=== PATIENT | female | born 1940 | race Asian ===

== ENCOUNTER 2019-12-28 11:52 | Inpatient (IN) | payer OTHER ==
[~2019-12-28] VITALS: Ht 149.9 cm; Wt 50.8 kg
[2019-12-28 12:33] LABS: BASOPHILS % (AUTO) 1 % (0-1); EOSINOPHILS % (AUTO) 0 % (1-7); LYMPHOCYTES % (AUTO) 17 % (22-44); MD NO; MEAN CORPUSCULAR HEMOGLOBIN 28.1 pg (27.0-34.8); MEAN CORPUSCULAR HGB CONC 32.8 g/dL (32.4-35.8); MEAN PLATELET VOLUME 10.3 fL (7.4-10.4); MONOCYTES % (AUTO) 13 % (2-9); NEUTROPHILS % (AUTO) 69 % (42-75); PLATELET COUNT 169 x10^3/uL (130-400); RED BLOOD COUNT 5.04 x10^6/uL (3.82-5.3); RED CELL DISTRIBUTION WIDTH 13.9 % (9.6-15.2)
[2019-12-28 12:42] LABS: INTERNATIONAL NORMALIZED RATIO 0.94 (0.93-1.1)
[2019-12-28 12:44] LABS: ALBUMIN 3.8 g/dL (3.4-5.0); ANION GAP 8 mmol/L (5-15); CALCIUM 9.7 mg/dL (8.5-10.1); CHLORIDE 105 mmol/L (98-107)
--- NOTE | 2019-12-28 12:45 | NUR ---
daughter at bedside states she needs to leave to take care of her kids at home. daughter states pt speaks tagalo. unable to get [employer] to work on [employer]
[2019-12-28 12:50] LABS: ALANINE AMINOTRANSFERASE 30 U/L (12-78); ALKALINE PHOSPHATASE 158 U/L (45-117); BILIRUBIN,TOTAL 0.6 mg/dL (0.2-1.0); CREATININE 1.03 mg/dL (0.55-1.02); TOTAL PROTEIN 8.4 g/dL (6.4-8.2)
--- NOTE | 2019-12-28 12:52 | NUR ---
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
--- NOTE | 2019-12-28 13:09 | NUR ---
pt to ct now
--- NOTE | 2019-12-28 13:16 | NUR ---
PT BACK FROM CT
[2019-12-28] MEDS ORDERED: OMNIPAQUE 350 MG/ML, 100ML BOTTLE ONE (13:29)
[2019-12-28] MEDS ORDERED: SODIUM CHLORIDE FLUSH 10ML SYR IVF ONE (13:30)
--- NOTE | 2019-12-28 13:30 | NUR ---
pt urinated the bed x2. new sheets and chucks applied x 2
[2019-12-28] MEDS ORDERED: LABETALOL 5MG/ML, 20ML IVPush ONE (14:00)
--- NOTE | 2019-12-28 16:42 | NUR ---
REPORT RECIEVED FROM VERN DURAN. ASSUMED CARE
[2019-12-28 18:40] VITALS: BP 176/87
[2019-12-28] MEDS ORDERED: POLYETHYLENE GLYCOL 17 GM PACKET PO PRN (19:30)
[2019-12-28] MEDS ORDERED: BISACODYL 10 MG SUPP PR PRN (19:30)
[2019-12-28] MEDS ORDERED: POTASSIUM CHLORIDE 20 MEQ TAB.ER.PRT PO ONE (20:00)
[2019-12-28 20:02] VITALS: BP 148/83
[2019-12-28] MEDS: SODIUM CHLORIDE 0.9% 1,000 ML IV SCH (21:04)
[2019-12-28] MEDS ORDERED: LOSA25TA12 PO (21:10)
[2019-12-28] MEDS ORDERED: ATOR20TA86 PO (21:12)
[2019-12-28] MEDS ORDERED: SITA1TAB PO (21:13)
[2019-12-29 00:58] VITALS: BP 152/86
[2019-12-29] MEDS: ASPIRIN 81 MG TABLET EC PO SCH (06:05)
[2019-12-29 06:28] LABS: BASOPHILS % (AUTO) 1 % (0-1); EOSINOPHILS % (AUTO) 0 % (1-7); LYMPHOCYTES % (AUTO) 28 % (22-44); MEAN CORPUSCULAR HEMOGLOBIN 27.7 pg (27.0-34.8); MEAN CORPUSCULAR HGB CONC 32.3 g/dL (32.4-35.8); MEAN PLATELET VOLUME 9.4 fL (7.4-10.4); MONOCYTES % (AUTO) 12 % (2-9); NEUTROPHILS % (AUTO) 60 % (42-75); PLATELET COUNT 156 x10^3/uL (130-400); RED BLOOD COUNT 5.05 x10^6/uL (3.82-5.3); RED CELL DISTRIBUTION WIDTH 13.8 % (9.6-15.2)
[2019-12-29 06:57] LABS: MD NO
[2019-12-29 07:11] VITALS: BP 165/85
[2019-12-29 10:47] LABS: ANION GAP 10 mmol/L (5-15); CALCIUM 9.1 mg/dL (8.5-10.1); CHLORIDE 110 mmol/L (98-107)
[2019-12-29 10:48] LABS: ALANINE AMINOTRANSFERASE 24 U/L (12-78); ALKALINE PHOSPHATASE 141 U/L (45-117); BILIRUBIN,TOTAL 0.5 mg/dL (0.2-1.0); CREATININE 0.94 mg/dL (0.55-1.02); TOTAL PROTEIN 7.8 g/dL (6.4-8.2)
[2019-12-29 10:49] LABS: ALBUMIN 3.3 g/dL (3.4-5.0); CHOL/HDL RATIO 1.9; CHOLESTEROL, TOTAL 142 mg/dL (140-239); HDL CHOL % 51 % (28-40); HDL CHOLESTEROL (DIRECT) 73 mg/dL (40-60); LDL CHOLESTEROL,CALCULATED 50 mg/dL (54-169); LDL/HDL RATIO 0.7 (0.5-3.0); TRIGLYCERIDES 96 mg/dL (50-200); VLDL CHOLESTEROL 19 mg/dL (0-25)
[2019-12-29] MEDS: SODIUM CHLORIDE 0.9% 1,000 ML IV SCH (11:30)
[2019-12-29 12:02] VITALS: BP 162/83
[2019-12-29] MEDS: ATORVASTATIN 40 MG TABLET PO SCH (21:25)
[2019-12-29 21:26] VITALS: BP 186/82
[2019-12-30 01:25] VITALS: BP 157/94
[2019-12-30] MEDS: SODIUM CHLORIDE 0.9% 1,000 ML IV SCH (03:02)
[2019-12-30] MEDS: ASPIRIN 81 MG TABLET EC PO SCH (06:29)
[2019-12-30 06:34] VITALS: BP 127/99
[2019-12-30 13:19] VITALS: BP 154/88
[2019-12-30] MEDS: ENOXAPARIN 40 MG/0.4 ML SQ SCH (13:44)
[2019-12-30 19:49] VITALS: BP 160/76
[2019-12-30] MEDS: ATORVASTATIN 40 MG TABLET PO SCH (21:49)
[2019-12-30] MEDS: ACETAMINOPHEN 325 MG TABLET PO PRN (22:52)
[2019-12-31 01:46] VITALS: BP 113/66
[2019-12-31] MEDS: ASPIRIN 81 MG TABLET EC PO SCH (05:38)
[2019-12-31 06:52] VITALS: BP 138/76
[2019-12-31] MEDS: POLYETHYLENE GLYCOL 17 GM PACKET PO SCH (12:26)
--- NOTE | 2019-12-31 12:46 | NUR ---
Posted activity sheet recommending patient be up for meals and transfer with two person assist using a nghia walker (in room) Addendum: 12/31/19 at 1252 by Taye Hilliard PT Amended: Links added.
[2019-12-31] MEDS: ENOXAPARIN 40 MG/0.4 ML SQ SCH (12:48)
[2019-12-31 13:55] VITALS: BP 128/62
[2019-12-31] MEDS: INSULIN LISPRO 100 UNITS/ML, PEN SQ-INSULIN SCH ×2 (16:53→20:18)
[2019-12-31 20:13] VITALS: BP 132/86
[2019-12-31] MEDS: ATORVASTATIN 40 MG TABLET PO SCH (20:18)
[2019-12-31] MEDS: ACETAMINOPHEN 325 MG TABLET PO PRN (20:18)
[2020-01-01 00:59] VITALS: BP 125/66
[2020-01-01] MEDS: ASPIRIN 81 MG TABLET EC PO SCH (05:09)
[2020-01-01] MEDS: INSULIN LISPRO 100 UNITS/ML, PEN SQ-INSULIN SCH ×4 (07:00→20:35)
[2020-01-01 07:47] VITALS: BP 161/80
[2020-01-01] MEDS: POLYETHYLENE GLYCOL 17 GM PACKET PO SCH (08:33)
[2020-01-01 12:18] VITALS: BP 139/82
[2020-01-01] MEDS: ENOXAPARIN 40 MG/0.4 ML SQ SCH (13:59)
[2020-01-01 20:18] VITALS: BP 152/89
[2020-01-01] MEDS: ACETAMINOPHEN 325 MG TABLET PO PRN (20:35)
[2020-01-01] MEDS: ATORVASTATIN 40 MG TABLET PO SCH (20:35)
[2020-01-02 01:32] VITALS: BP 105/66
[2020-01-02] MEDS: ASPIRIN 81 MG TABLET EC PO SCH (05:55)
[2020-01-02] MEDS: INSULIN LISPRO 100 UNITS/ML, PEN SQ-INSULIN SCH ×4 (07:49→21:08)
[2020-01-02 08:48] VITALS: BP 158/80
[2020-01-02 09:18] LABS: BASOPHILS % (AUTO) 1 % (0-1); EOSINOPHILS % (AUTO) 0 % (1-7); LYMPHOCYTES % (AUTO) 36 % (22-44); MD NO; MEAN CORPUSCULAR HEMOGLOBIN 28.5 pg (27.0-34.8); MEAN CORPUSCULAR HGB CONC 32.8 g/dL (32.4-35.8); MEAN PLATELET VOLUME 9.8 fL (7.4-10.4); MONOCYTES % (AUTO) 13 % (2-9); NEUTROPHILS % (AUTO) 51 % (42-75); PLATELET COUNT 141 x10^3/uL (130-400); RED BLOOD COUNT 5.45 x10^6/uL (3.82-5.3); RED CELL DISTRIBUTION WIDTH 13.8 % (9.6-15.2)
[2020-01-02 09:27] LABS: ALBUMIN 3.4 g/dL (3.4-5.0); ANION GAP 10 mmol/L (5-15); CALCIUM 9.2 mg/dL (8.5-10.1); CHLORIDE 102 mmol/L (98-107)
[2020-01-02 09:31] LABS: ALANINE AMINOTRANSFERASE 41 U/L (12-78); ALKALINE PHOSPHATASE 213 U/L (45-117); BILIRUBIN,TOTAL 0.7 mg/dL (0.2-1.0); CREATININE 1.06 mg/dL (0.55-1.02); TOTAL PROTEIN 8.9 g/dL (6.4-8.2)
[2020-01-02] MEDS: POLYETHYLENE GLYCOL 17 GM PACKET PO SCH (11:52)
[2020-01-02] MEDS: AMPICILLIN/SULBACTAM 3 GM in SODIUM CHLORIDE 0.9% 100 ML IV SCH ×2 (11:53→18:23)
[2020-01-02 12:28] VITALS: BP 142/93
[2020-01-02] MEDS: ENOXAPARIN 40 MG/0.4 ML SQ SCH (12:53)
[2020-01-02 19:15] VITALS: BP 137/88
[2020-01-02] MEDS: ATORVASTATIN 40 MG TABLET PO SCH (21:07)
[2020-01-03] MEDS: AMPICILLIN/SULBACTAM 3 GM in SODIUM CHLORIDE 0.9% 100 ML IV SCH ×5 (00:11→23:42)
[2020-01-03 02:00] VITALS: BP 132/84
[2020-01-03] MEDS: ASPIRIN 81 MG TABLET EC PO SCH (05:55)
[2020-01-03 06:32] VITALS: BP 151/81
[2020-01-03 07:57] LABS: BASOPHILS % (AUTO) 0 % (0-1); EOSINOPHILS % (AUTO) 0 % (1-7); LYMPHOCYTES % (AUTO) 22 % (22-44); MEAN CORPUSCULAR HEMOGLOBIN 28.3 pg (27.0-34.8); MEAN CORPUSCULAR HGB CONC 32.8 g/dL (32.4-35.8); MONOCYTES % (AUTO) 14 % (2-9); NEUTROPHILS % (AUTO) 63 % (42-75); PLATELET COUNT 137 x10^3/uL (130-400); RED BLOOD COUNT 5.02 x10^6/uL (3.82-5.3); RED CELL DISTRIBUTION WIDTH 13.3 % (9.6-15.2)
[2020-01-03 08:06] LABS: MD NO
[2020-01-03 08:07] LABS: ALANINE AMINOTRANSFERASE 31 U/L (12-78); ALBUMIN 2.7 g/dL (3.4-5.0); ANION GAP 9 mmol/L (5-15); CALCIUM 8.4 mg/dL (8.5-10.1); CHLORIDE 103 mmol/L (98-107); CREATININE 0.88 mg/dL (0.55-1.02)
[2020-01-03 08:09] LABS: ALKALINE PHOSPHATASE 185 U/L (45-117); BILIRUBIN,TOTAL 0.6 mg/dL (0.2-1.0); TOTAL PROTEIN 7.3 g/dL (6.4-8.2)
[2020-01-03] MEDS: INSULIN LISPRO 100 UNITS/ML, PEN SQ-INSULIN SCH ×4 (08:24→20:05)
[2020-01-03] MEDS: POLYETHYLENE GLYCOL 17 GM PACKET PO SCH (09:03)
[2020-01-03] MEDS: ENOXAPARIN 40 MG/0.4 ML SQ SCH (11:37)
[2020-01-03 12:03] VITALS: BP 120/76
[2020-01-03 19:19] VITALS: BP 173/84
[2020-01-03 21:19] VITALS: BP 173/91
[2020-01-03] MEDS: ATORVASTATIN 40 MG TABLET PO SCH (21:21)
[2020-01-03] MEDS: hydrALAzine 20 MG/ML, 1ML IV PRN (21:22)
[2020-01-03 23:01] VITALS: BP 156/75
[2020-01-04 00:48] VITALS: BP 153/80
[2020-01-04] MEDS: AMPICILLIN/SULBACTAM 3 GM in SODIUM CHLORIDE 0.9% 100 ML IV SCH ×3 (06:26→16:58)
[2020-01-04] MEDS: ASPIRIN 81 MG TABLET EC PO SCH (06:26)
[2020-01-04 06:56] VITALS: BP 145/74
[2020-01-04 08:08] LABS: MICROSCOPIC INDICATED
[2020-01-04] MEDS: INSULIN LISPRO 100 UNITS/ML, PEN SQ-INSULIN SCH ×4 (08:15→21:04)
[2020-01-04] MEDS ORDERED: LISINOPRIL 5 MG TABLET PO SCH (09:00)
[2020-01-04] MEDS: POLYETHYLENE GLYCOL 17 GM PACKET PO SCH (09:21)
[2020-01-04 12:23] VITALS: BP 130/75
[2020-01-04] MEDS: ENOXAPARIN 40 MG/0.4 ML SQ SCH (13:15)
[2020-01-04 19:09] VITALS: BP 137/73
[2020-01-04] MEDS: ATORVASTATIN 40 MG TABLET PO SCH (21:04)
[2020-01-05] MEDS: AMPICILLIN/SULBACTAM 3 GM in SODIUM CHLORIDE 0.9% 100 ML IV SCH ×4 (00:01→17:15)
[2020-01-05 02:27] VITALS: BP 163/70
[2020-01-05] MEDS: ASPIRIN 81 MG TABLET EC PO SCH (05:48)
[2020-01-05] MEDS: INSULIN LISPRO 100 UNITS/ML, PEN SQ-INSULIN SCH ×4 (07:00→21:15)
[2020-01-05 07:14] VITALS: BP 179/80
[2020-01-05] MEDS: LISINOPRIL 10 MG TABLET PO SCH (07:48)
[2020-01-05] MEDS: POLYETHYLENE GLYCOL 17 GM PACKET PO SCH (07:48)
[2020-01-05] MEDS: ENOXAPARIN 40 MG/0.4 ML SQ SCH (12:31)
[2020-01-05 12:53] VITALS: BP 152/79
[2020-01-05 19:50] VITALS: BP 163/89
[2020-01-05 19:56] VITALS: BP 157/94
[2020-01-05] MEDS: ATORVASTATIN 40 MG TABLET PO SCH (21:14)
[2020-01-06] MEDS: AMPICILLIN/SULBACTAM 3 GM in SODIUM CHLORIDE 0.9% 100 ML IV SCH ×4 (00:58→18:32)
[2020-01-06 01:07] VITALS: BP 117/70
[2020-01-06 06:16] VITALS: BP 147/74
[2020-01-06] MEDS: INSULIN LISPRO 100 UNITS/ML, PEN SQ-INSULIN SCH ×4 (07:35→20:27)
[2020-01-06] MEDS: ASPIRIN 81 MG TABLET EC PO SCH (09:16)
[2020-01-06] MEDS: LISINOPRIL 10 MG TABLET PO SCH (09:17)
[2020-01-06] MEDS: POLYETHYLENE GLYCOL 17 GM PACKET PO SCH (09:17)
[2020-01-06 12:05] VITALS: BP 148/80
[2020-01-06] MEDS: ENOXAPARIN 40 MG/0.4 ML SQ SCH (12:43)
[2020-01-06 19:40] VITALS: BP 163/96
[2020-01-06] MEDS: ATORVASTATIN 40 MG TABLET PO SCH (20:28)
[2020-01-07] MEDS: AMPICILLIN/SULBACTAM 3 GM in SODIUM CHLORIDE 0.9% 100 ML IV SCH ×4 (01:49→21:08)
[2020-01-07 02:31] VITALS: BP 122/76
[2020-01-07] MEDS: ASPIRIN 81 MG TABLET EC PO SCH (05:56)
[2020-01-07 06:55] VITALS: BP 147/91
[2020-01-07] MEDS: INSULIN LISPRO 100 UNITS/ML, PEN SQ-INSULIN SCH ×4 (07:00→20:33)
[2020-01-07] MEDS: POLYETHYLENE GLYCOL 17 GM PACKET PO SCH (09:58)
[2020-01-07] MEDS: ENOXAPARIN 40 MG/0.4 ML SQ SCH (11:26)
[2020-01-07 15:18] VITALS: BP 149/84
[2020-01-07 18:38] VITALS: BP 147/80
[2020-01-07] MEDS: ATORVASTATIN 40 MG TABLET PO SCH (20:37)
[2020-01-08 00:40] VITALS: BP 156/78
[2020-01-08 02:00] LABS: BASOPHILS % (AUTO) 0 % (0-1); EOSINOPHILS % (AUTO) 0 % (1-7); LYMPHOCYTES % (AUTO) 18 % (22-44); MEAN CORPUSCULAR HEMOGLOBIN 27.8 pg (27.0-34.8); MEAN CORPUSCULAR HGB CONC 32.4 g/dL (32.4-35.8); MEAN PLATELET VOLUME 9.3 fL (7.4-10.4); MONOCYTES % (AUTO) 13 % (2-9); NEUTROPHILS % (AUTO) 68 % (42-75); PLATELET COUNT 249 x10^3/uL (130-400); RED BLOOD COUNT 4.58 x10^6/uL (3.82-5.3); RED CELL DISTRIBUTION WIDTH 13.8 % (9.6-15.2)
[2020-01-08 02:03] LABS: MD NO
[2020-01-08 02:21] LABS: D-DIMER (DIC) 0.86 ug/mlFEU (0.00-0.52)
[2020-01-08 02:42] LABS: ANION GAP 6 mmol/L (5-15); CALCIUM 8.6 mg/dL (8.5-10.1); CHLORIDE 103 mmol/L (98-107); CREATININE 0.76 mg/dL (0.55-1.02)
[2020-01-08] MEDS ORDERED: POTASSIUM CHLORIDE 40 MEQ in SODIUM CHLORIDE 0.9% 500 ML IV ONE (03:00)
[2020-01-08] MEDS: AMPICILLIN/SULBACTAM 3 GM in SODIUM CHLORIDE 0.9% 100 ML IV SCH ×3 (04:21→16:21)
[2020-01-08] MEDS: ASPIRIN 81 MG TABLET EC PO SCH (05:08)
[2020-01-08 06:52] VITALS: BP 149/88
[2020-01-08] MEDS: INSULIN LISPRO 100 UNITS/ML, PEN SQ-INSULIN SCH ×5 (07:00→21:00)
[2020-01-08] MEDS ORDERED: POTASSIUM CHLORIDE 10% 20 MEQ/15 ML UDC PO SCH (08:00)
[2020-01-08] MEDS: LISINOPRIL 20 MG TABLET PO SCH (09:26)
[2020-01-08] MEDS: POTASSIUM CHLORIDE 20 MEQ TAB.ER.PRT PO SCH ×2 (09:26→13:28)
[2020-01-08] MEDS: POLYETHYLENE GLYCOL 17 GM PACKET PO SCH (09:26)
[2020-01-08 12:05] VITALS: BP 173/89
[2020-01-08] MEDS: hydrALAzine 20 MG/ML, 1ML IV PRN (12:16)
[2020-01-08 16:42] VITALS: BP 156/84
[2020-01-08] MEDS: ENOXAPARIN 40 MG/0.4 ML SQ SCH (17:35)
[2020-01-08 20:00] VITALS: BP 165/92
[2020-01-08] MEDS: LACTOBACILLUS CHEW TABLET PO SCH (21:00)
[2020-01-08] MEDS: ATORVASTATIN 40 MG TABLET PO SCH (21:38)
[2020-01-08] MEDS ORDERED: AMPICILLIN/SULBACTAM 3 GM in SODIUM CHLORIDE 0.9% 100 ML IV SCH (22:00)
[2020-01-09 01:38] VITALS: BP 166/85
[2020-01-09 04:39] LABS: BASOPHILS % (AUTO) 1 % (0-1); EOSINOPHILS % (AUTO) 1 % (1-7); LYMPHOCYTES % (AUTO) 19 % (22-44); MEAN CORPUSCULAR HEMOGLOBIN 28.4 pg (27.0-34.8); MEAN CORPUSCULAR HGB CONC 32.8 g/dL (32.4-35.8); MEAN PLATELET VOLUME 8.9 fL (7.4-10.4); MONOCYTES % (AUTO) 13 % (2-9); NEUTROPHILS % (AUTO) 67 % (42-75); PLATELET COUNT 281 x10^3/uL (130-400); RED BLOOD COUNT 4.25 x10^6/uL (3.82-5.3); RED CELL DISTRIBUTION WIDTH 13.6 % (9.6-15.2)
[2020-01-09 04:47] LABS: ANION GAP 6 mmol/L (5-15); CALCIUM 8.8 mg/dL (8.5-10.1); CHLORIDE 108 mmol/L (98-107); CREATININE 0.67 mg/dL (0.55-1.02)
[2020-01-09] MEDS: ASPIRIN 81 MG TABLET EC PO SCH (05:10)
[2020-01-09 05:58] LABS: MD SCAN
[2020-01-09] MEDS: INSULIN LISPRO 100 UNITS/ML, PEN SQ-INSULIN SCH ×4 (07:00→19:51)
[2020-01-09 08:00] VITALS: BP 180/94
[2020-01-09] MEDS: POLYETHYLENE GLYCOL 17 GM PACKET PO SCH (10:32)
[2020-01-09] MEDS: LISINOPRIL 20 MG TABLET PO SCH (10:33)
[2020-01-09] MEDS: AMLODIPINE 5 MG TABLET PO SCH (10:33)
[2020-01-09] MEDS: LACTOBACILLUS CHEW TABLET PO SCH ×3 (10:34→21:25)
--- NOTE | 2020-01-09 12:06 | NUR ---
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 Addendum: 01/09/20 at 1207 by Belen CONRAD Amended: Links added.
[2020-01-09 14:00] VITALS: BP 167/90
[2020-01-09] MEDS: ENOXAPARIN 40 MG/0.4 ML SQ SCH (17:42)
[2020-01-09 19:20] VITALS: BP 158/79
[2020-01-09] MEDS: ATORVASTATIN 40 MG TABLET PO SCH (21:24)
[2020-01-09] MEDS: MELATONIN 5 MG TABLET PO PRN (21:24)
[2020-01-10 01:39] VITALS: BP 151/73
[2020-01-10] MEDS: ASPIRIN 81 MG TABLET EC PO SCH (05:57)
[2020-01-10 06:51] VITALS: BP 114/77
[2020-01-10] MEDS: INSULIN LISPRO 100 UNITS/ML, PEN SQ-INSULIN SCH ×4 (08:26→20:30)
[2020-01-10] MEDS: LISINOPRIL 20 MG TABLET PO SCH (08:27)
[2020-01-10] MEDS: POLYETHYLENE GLYCOL 17 GM PACKET PO SCH (08:27)
[2020-01-10] MEDS: LACTOBACILLUS CHEW TABLET PO SCH ×3 (08:27→20:20)
[2020-01-10] MEDS: AMLODIPINE 5 MG TABLET PO SCH (08:28)
[2020-01-10 12:06] VITALS: BP 122/77
[2020-01-10] MEDS: ENOXAPARIN 40 MG/0.4 ML SQ SCH (15:59)
[2020-01-10 16:02] VITALS: BP 131/81
[2020-01-10] MEDS ORDERED: OMNIPAQUE 350 MG/ML, 75ML BOTTLE ONE (18:04)
[2020-01-10 19:00] VITALS: BP 127/82
[2020-01-10] MEDS: ATORVASTATIN 40 MG TABLET PO SCH (20:20)
[2020-01-10] MEDS: MELATONIN 5 MG TABLET PO PRN (20:51)
[2020-01-11 02:00] VITALS: BP 119/74
[2020-01-11] MEDS: ASPIRIN 81 MG TABLET EC PO SCH (05:41)
[2020-01-11] MEDS: INSULIN LISPRO 100 UNITS/ML, PEN SQ-INSULIN SCH ×4 (07:00→21:00)
[2020-01-11 07:27] VITALS: BP 121/75
[2020-01-11] MEDS: POLYETHYLENE GLYCOL 17 GM PACKET PO SCH (08:57)
[2020-01-11] MEDS: AMLODIPINE 5 MG TABLET PO SCH (08:59)
[2020-01-11] MEDS: LISINOPRIL 20 MG TABLET PO SCH (09:00)
[2020-01-11] MEDS: LACTOBACILLUS CHEW TABLET PO SCH ×2 (09:00→16:22)
[2020-01-11 16:08] VITALS: BP 128/78
[2020-01-11] MEDS: ENOXAPARIN 40 MG/0.4 ML SQ SCH (16:21)
[2020-01-11] MEDS: PIPERACILLIN/TAZO/PMX 4.5GM 100 ML IV SCH ×2 (16:54→22:53)
[2020-01-11 18:54] VITALS: BP 132/75
[2020-01-11] MEDS: MELATONIN 5 MG TABLET PO PRN (21:15)
[2020-01-11] MEDS: ATORVASTATIN 40 MG TABLET PO SCH (21:15)
[2020-01-12 01:14] VITALS: BP 112/69
[2020-01-12] MEDS: PIPERACILLIN/TAZO/PMX 4.5GM 100 ML IV SCH ×2 (04:50→11:24)
[2020-01-12] MEDS: ASPIRIN 81 MG TABLET EC PO SCH (06:10)
[2020-01-12] MEDS: INSULIN LISPRO 100 UNITS/ML, PEN SQ-INSULIN SCH ×4 (07:00→21:45)
[2020-01-12 07:48] LABS: BASOPHILS % (AUTO) 0 % (0-1); EOSINOPHILS % (AUTO) 2 % (1-7); LYMPHOCYTES % (AUTO) 18 % (22-44); MEAN CORPUSCULAR HEMOGLOBIN 28.4 pg (27.0-34.8); MEAN CORPUSCULAR HGB CONC 32.8 g/dL (32.4-35.8); MEAN PLATELET VOLUME 9.1 fL (7.4-10.4); MONOCYTES % (AUTO) 16 % (2-9); NEUTROPHILS % (AUTO) 65 % (42-75); PLATELET COUNT 354 x10^3/uL (130-400); RED CELL DISTRIBUTION WIDTH 13.4 % (9.6-15.2)
[2020-01-12 07:57] LABS: CHLORIDE 105 mmol/L (98-107)
[2020-01-12 08:10] LABS: ALANINE AMINOTRANSFERASE 29 U/L (12-78); ALBUMIN 2.2 g/dL (3.4-5.0); ALKALINE PHOSPHATASE 149 U/L (45-117); ANION GAP 10 mmol/L (5-15); BILIRUBIN,TOTAL 1.1 mg/dL (0.2-1.0); CREATININE 0.89 mg/dL (0.55-1.02); TOTAL PROTEIN 6.9 g/dL (6.4-8.2)
[2020-01-12 08:13] LABS: MD NO
[2020-01-12] MEDS: LISINOPRIL 20 MG TABLET PO SCH (09:34)
[2020-01-12] MEDS: AMLODIPINE 5 MG TABLET PO SCH (09:34)
[2020-01-12] MEDS: POLYETHYLENE GLYCOL 17 GM PACKET PO SCH (09:34)
[2020-01-12] MEDS ORDERED: POTASSIUM CHLORIDE 20 MEQ TAB.ER.PRT PO ONE (11:00)
[2020-01-12 11:21] VITALS: BP 148/81
[2020-01-12] MEDS: ENOXAPARIN 40 MG/0.4 ML SQ SCH (17:28)
[2020-01-12 18:50] VITALS: BP 158/82
[2020-01-12] MEDS: PIPERACILLIN/TAZO/PMX 3.375GM 50 ML IV SCH ×2 (19:46→21:46)
[2020-01-12] MEDS: ATORVASTATIN 40 MG TABLET PO SCH (21:45)
[2020-01-13 01:03] VITALS: BP 118/62
[2020-01-13] MEDS: PIPERACILLIN/TAZO/PMX 3.375GM 50 ML IV SCH ×4 (05:00→23:46)
[2020-01-13] MEDS: ASPIRIN 81 MG TABLET EC PO SCH (05:00)
[2020-01-13 06:36] VITALS: BP 166/80
[2020-01-13] MEDS: INSULIN LISPRO 100 UNITS/ML, PEN SQ-INSULIN SCH ×4 (07:00→21:35)
[2020-01-13] MEDS: POLYETHYLENE GLYCOL 17 GM PACKET PO SCH (07:52)
[2020-01-13] MEDS: CHOLECALCIFEROL 5,000u TAB PO SCH (09:47)
[2020-01-13] MEDS: LISINOPRIL 20 MG TABLET PO SCH (09:47)
[2020-01-13] MEDS: ZINC SULFATE 220 MG CAPSULE PO SCH (09:47)
[2020-01-13] MEDS: ASCORBIC ACID 500 MG TABLET PO SCH ×2 (09:47→21:36)
[2020-01-13] MEDS: AMLODIPINE 5 MG TABLET PO SCH (09:47)
[2020-01-13 13:23] VITALS: BP 127/72
[2020-01-13] MEDS: ENOXAPARIN 40 MG/0.4 ML SQ SCH (18:20)
[2020-01-13 19:08] VITALS: BP 152/76
[2020-01-13] MEDS: ATORVASTATIN 40 MG TABLET PO SCH (21:35)
[2020-01-13] MEDS: MELATONIN 5 MG TABLET PO SCH (21:35)
[2020-01-14 00:16] VITALS: BP 132/82
[2020-01-14] MEDS: PIPERACILLIN/TAZO/PMX 3.375GM 50 ML IV SCH ×4 (05:10→23:38)
[2020-01-14] MEDS: ASPIRIN 81 MG TABLET EC PO SCH (05:10)
[2020-01-14 06:53] VITALS: BP 173/82
[2020-01-14] MEDS: INSULIN LISPRO 100 UNITS/ML, PEN SQ-INSULIN SCH ×4 (07:00→20:53)
[2020-01-14] MEDS: AMLODIPINE 10 MG TAB PO SCH (08:19)
[2020-01-14] MEDS: LISINOPRIL 20 MG TABLET PO SCH (08:19)
[2020-01-14] MEDS: ASCORBIC ACID 500 MG TABLET PO SCH ×2 (08:19→20:56)
[2020-01-14] MEDS: POLYETHYLENE GLYCOL 17 GM PACKET PO SCH (08:19)
[2020-01-14] MEDS: CHOLECALCIFEROL 5,000u TAB PO SCH (08:20)
[2020-01-14] MEDS: ZINC SULFATE 220 MG CAPSULE PO SCH (08:20)
[2020-01-14 12:46] VITALS: BP 138/80
[2020-01-14] MEDS: ENOXAPARIN 40 MG/0.4 ML SQ SCH (17:00)
[2020-01-14 18:55] VITALS: BP 153/73
[2020-01-14] MEDS ORDERED: ASCORBIC ACID 250 MG TAB ONE (20:52)
[2020-01-14] MEDS: ATORVASTATIN 40 MG TABLET PO SCH (20:56)
[2020-01-14] MEDS: MELATONIN 5 MG TABLET PO SCH (20:56)
[2020-01-15 01:19] VITALS: BP 121/72
[2020-01-15] MEDS: ASPIRIN 81 MG TABLET EC PO SCH (05:06)
[2020-01-15] MEDS: PIPERACILLIN/TAZO/PMX 3.375GM 50 ML IV SCH ×4 (05:06→22:08)
[2020-01-15 07:08] LABS: ANION GAP 10 mmol/L (5-15); CALCIUM 9.2 mg/dL (8.5-10.1); CHLORIDE 101 mmol/L (98-107)
[2020-01-15 08:06] VITALS: BP 153/83
[2020-01-15] MEDS: INSULIN LISPRO 100 UNITS/ML, PEN SQ-INSULIN SCH ×4 (08:57→21:00)
[2020-01-15] MEDS: ZINC SULFATE 220 MG CAPSULE PO SCH (08:58)
[2020-01-15] MEDS: AMLODIPINE 10 MG TAB PO SCH (08:58)
[2020-01-15] MEDS: ASCORBIC ACID 500 MG TABLET PO SCH ×2 (08:58→22:08)
[2020-01-15] MEDS: POLYETHYLENE GLYCOL 17 GM PACKET PO SCH (08:58)
[2020-01-15] MEDS: CHOLECALCIFEROL 5,000u TAB PO SCH (08:58)
[2020-01-15] MEDS: LISINOPRIL 20 MG TABLET PO SCH (08:58)
[2020-01-15 12:28] VITALS: BP 123/77
[2020-01-15] MEDS ORDERED: POTASSIUM CHLORIDE 20 MEQ TAB.ER.PRT PO ONE (17:00)
[2020-01-15] MEDS: ENOXAPARIN 40 MG/0.4 ML SQ SCH (18:16)
[2020-01-15 21:05] VITALS: BP 146/73
[2020-01-15] MEDS: MELATONIN 5 MG TABLET PO SCH (22:08)
[2020-01-15] MEDS: ATORVASTATIN 40 MG TABLET PO SCH (22:08)
[2020-01-16 00:59] VITALS: BP 138/76
[2020-01-16] MEDS: PIPERACILLIN/TAZO/PMX 3.375GM 50 ML IV SCH ×3 (06:09→19:05)
[2020-01-16] MEDS: ASPIRIN 81 MG TABLET EC PO SCH (06:10)
[2020-01-16 06:38] VITALS: BP 147/75
[2020-01-16] MEDS: INSULIN LISPRO 100 UNITS/ML, PEN SQ-INSULIN SCH ×4 (07:16→20:47)
[2020-01-16] MEDS: POLYETHYLENE GLYCOL 17 GM PACKET PO SCH (07:47)
[2020-01-16] MEDS: LISINOPRIL 20 MG TABLET PO SCH (10:01)
[2020-01-16] MEDS: CHOLECALCIFEROL 5,000u TAB PO SCH (10:01)
[2020-01-16] MEDS: ZINC SULFATE 220 MG CAPSULE PO SCH (10:01)
[2020-01-16] MEDS: ASCORBIC ACID 500 MG TABLET PO SCH ×2 (10:01→20:47)
[2020-01-16] MEDS: AMLODIPINE 10 MG TAB PO SCH (10:01)
[2020-01-16 11:17] VITALS: BP_SYST 122; BP_SYST 157; BP_DIAS 77; BP_DIAS 80
[2020-01-16 12:24] VITALS: BP 157/80
[2020-01-16] MEDS: ENOXAPARIN 40 MG/0.4 ML SQ SCH (17:16)
[2020-01-16] MEDS: ATORVASTATIN 40 MG TABLET PO SCH (20:47)
[2020-01-16] MEDS: MELATONIN 5 MG TABLET PO SCH (20:47)
[2020-01-16 20:50] VITALS: BP 144/78
[2020-01-17] MEDS: PIPERACILLIN/TAZO/PMX 3.375GM 50 ML IV SCH ×4 (00:51→18:42)
[2020-01-17 02:02] VITALS: BP 134/67
[2020-01-17] MEDS: ASPIRIN 81 MG TABLET EC PO SCH (05:56)
[2020-01-17 06:37] VITALS: BP 131/74
[2020-01-17] MEDS: INSULIN LISPRO 100 UNITS/ML, PEN SQ-INSULIN SCH ×4 (09:04→20:03)
[2020-01-17] MEDS: POLYETHYLENE GLYCOL 17 GM PACKET PO SCH (09:04)
[2020-01-17] MEDS: LISINOPRIL 20 MG TABLET PO SCH (09:05)
[2020-01-17] MEDS: ZINC SULFATE 220 MG CAPSULE PO SCH (09:05)
[2020-01-17] MEDS: ASCORBIC ACID 500 MG TABLET PO SCH ×2 (09:05→20:04)
[2020-01-17] MEDS: AMLODIPINE 10 MG TAB PO SCH (09:05)
[2020-01-17] MEDS: CHOLECALCIFEROL 5,000u TAB PO SCH (09:05)
[2020-01-17 12:00] VITALS: BP 156/77
[2020-01-17] MEDS: ENOXAPARIN 40 MG/0.4 ML SQ SCH (15:32)
[2020-01-17 18:33] VITALS: BP 132/62
[2020-01-17] MEDS: ATORVASTATIN 40 MG TABLET PO SCH (20:04)
[2020-01-17] MEDS: MELATONIN 5 MG TABLET PO SCH (20:05)
[2020-01-17] MEDS: ACETAMINOPHEN 325 MG TABLET PO PRN (20:08)
[2020-01-18 01:12] VITALS: BP 149/73
[2020-01-18] MEDS: ASPIRIN 81 MG TABLET EC PO SCH (05:43)
[2020-01-18] MEDS: INSULIN LISPRO 100 UNITS/ML, PEN SQ-INSULIN SCH ×4 (07:00→20:33)
[2020-01-18 07:55] VITALS: BP 125/70
[2020-01-18 08:15] VITALS: BP 128/74
[2020-01-18] MEDS: POLYETHYLENE GLYCOL 17 GM PACKET PO SCH (08:20)
[2020-01-18] MEDS: AMLODIPINE 10 MG TAB PO SCH (08:20)
[2020-01-18] MEDS: ZINC SULFATE 220 MG CAPSULE PO SCH (08:20)
[2020-01-18] MEDS: CHOLECALCIFEROL 5,000u TAB PO SCH (08:20)
[2020-01-18] MEDS: ASCORBIC ACID 500 MG TABLET PO SCH ×2 (08:20→20:33)
[2020-01-18] MEDS: LISINOPRIL 20 MG TABLET PO SCH (08:20)
[2020-01-18 12:29] VITALS: BP 126/72
[2020-01-18] MEDS: ENOXAPARIN 40 MG/0.4 ML SQ SCH (16:02)
[2020-01-18 18:30] VITALS: BP 104/64
[2020-01-18] MEDS: MELATONIN 5 MG TABLET PO SCH (20:33)
[2020-01-18] MEDS: DOCUSATE 100 MG CAPSULE PO PRN (20:33)
[2020-01-18] MEDS: ATORVASTATIN 40 MG TABLET PO SCH (20:33)
[2020-01-19 00:40] VITALS: BP 126/72
[2020-01-19] MEDS: ASPIRIN 81 MG TABLET EC PO SCH (05:06)
[2020-01-19 05:24] LABS: INTERNATIONAL NORMALIZED RATIO 1.02 (0.93-1.1); PROTHROMBIN TIME 10.8 Seconds (9.6-11.5)
[2020-01-19] MEDS: INSULIN LISPRO 100 UNITS/ML, PEN SQ-INSULIN SCH ×4 (07:00→21:00)
[2020-01-19] MEDS: POLYETHYLENE GLYCOL 17 GM PACKET PO SCH ×2 (08:11→09:00)
[2020-01-19] MEDS: AMLODIPINE 10 MG TAB PO SCH ×2 (08:11→09:00)
[2020-01-19] MEDS: ZINC SULFATE 220 MG CAPSULE PO SCH ×2 (08:11→09:00)
[2020-01-19] MEDS: CHOLECALCIFEROL 5,000u TAB PO SCH (08:11)
[2020-01-19] MEDS: LISINOPRIL 20 MG TABLET PO SCH ×2 (08:11→09:00)
[2020-01-19] MEDS: ASCORBIC ACID 500 MG TABLET PO SCH ×3 (08:11→21:13)
[2020-01-19 08:12] VITALS: BP 132/75
[2020-01-19 15:02] VITALS: BP 111/61
[2020-01-19] MEDS: ENOXAPARIN 40 MG/0.4 ML SQ SCH (16:31)
[2020-01-19 19:42] VITALS: BP 153/78
[2020-01-19] MEDS: ATORVASTATIN 40 MG TABLET PO SCH (21:12)
[2020-01-19] MEDS: MELATONIN 5 MG TABLET PO SCH (21:12)
[2020-01-20 00:21] VITALS: BP 149/76
[2020-01-20] MEDS: ASPIRIN 81 MG TABLET EC PO SCH (06:18)
[2020-01-20] MEDS: INSULIN LISPRO 100 UNITS/ML, PEN SQ-INSULIN SCH ×4 (07:00→20:26)
[2020-01-20 07:50] VITALS: BP 122/65
[2020-01-20] MEDS: AMLODIPINE 10 MG TAB PO SCH (07:52)
[2020-01-20] MEDS: ZINC SULFATE 220 MG CAPSULE PO SCH (07:52)
[2020-01-20] MEDS: CHOLECALCIFEROL 5,000u TAB PO SCH (07:52)
[2020-01-20] MEDS: LISINOPRIL 20 MG TABLET PO SCH (07:52)
[2020-01-20] MEDS: ASCORBIC ACID 500 MG TABLET PO SCH ×2 (07:53→20:27)
[2020-01-20] MEDS: POLYETHYLENE GLYCOL 17 GM PACKET PO SCH (07:53)
[2020-01-20 12:47] VITALS: BP 116/73
[2020-01-20] MEDS: ENOXAPARIN 40 MG/0.4 ML SQ SCH (16:22)
[2020-01-20 20:22] VITALS: BP 117/66
[2020-01-20] MEDS: ATORVASTATIN 40 MG TABLET PO SCH (20:26)
[2020-01-20] MEDS: MELATONIN 5 MG TABLET PO SCH (20:27)
[2020-01-21 01:28] VITALS: BP 135/76
[2020-01-21] MEDS: ASPIRIN 81 MG TABLET EC PO SCH (06:27)
[2020-01-21] MEDS: INSULIN LISPRO 100 UNITS/ML, PEN SQ-INSULIN SCH ×4 (07:00→21:06)
[2020-01-21 07:29] LABS: CREATININE 0.76 mg/dL (0.55-1.02)
[2020-01-21 07:36] VITALS: BP 151/72
[2020-01-21] MEDS: POLYETHYLENE GLYCOL 17 GM PACKET PO SCH (09:22)
[2020-01-21] MEDS: LISINOPRIL 20 MG TABLET PO SCH (09:23)
[2020-01-21] MEDS: ASCORBIC ACID 500 MG TABLET PO SCH ×2 (09:23→20:59)
[2020-01-21] MEDS: ZINC SULFATE 220 MG CAPSULE PO SCH (09:23)
[2020-01-21] MEDS: CHOLECALCIFEROL 5,000u TAB PO SCH (09:23)
[2020-01-21] MEDS: AMLODIPINE 10 MG TAB PO SCH (09:23)
[2020-01-21] MEDS ORDERED: ATOR20TA86 PO (11:05)
[2020-01-21] MEDS ORDERED: LISI-170 PO (11:05)
[2020-01-21] MEDS ORDERED: AMLO-211 PO (11:05)
[2020-01-21] MEDS ORDERED: ASPI81TA45 PO (11:05)
[2020-01-21 15:44] VITALS: BP 125/71
[2020-01-21] MEDS: ENOXAPARIN 40 MG/0.4 ML SQ SCH (16:18)
[2020-01-21 19:22] VITALS: BP 118/72
[2020-01-21] MEDS: MELATONIN 5 MG TABLET PO SCH (20:58)
[2020-01-21] MEDS: ATORVASTATIN 40 MG TABLET PO SCH (20:58)
[2020-01-21] MEDS: DOCUSATE 100 MG CAPSULE PO PRN (20:59)
[2020-01-22 00:50] VITALS: BP 125/70
[2020-01-22] MEDS: ASPIRIN 81 MG TABLET EC PO SCH (05:35)
[2020-01-22 06:24] LABS: INTERNATIONAL NORMALIZED RATIO 0.98 (0.93-1.1); PROTHROMBIN TIME 10.4 Seconds (9.6-11.5)
[2020-01-22 07:02] VITALS: BP 130/69
[2020-01-22] MEDS: INSULIN LISPRO 100 UNITS/ML, PEN SQ-INSULIN SCH ×2 (07:29→11:09)
[2020-01-22] MEDS: ZINC SULFATE 220 MG CAPSULE PO SCH (09:39)
[2020-01-22] MEDS: AMLODIPINE 10 MG TAB PO SCH (09:39)
[2020-01-22] MEDS: ASCORBIC ACID 500 MG TABLET PO SCH (09:39)
[2020-01-22] MEDS: CHOLECALCIFEROL 5,000u TAB PO SCH (09:40)
[2020-01-22] MEDS: LISINOPRIL 20 MG TABLET PO SCH (09:40)
[2020-01-22] MEDS: POLYETHYLENE GLYCOL 17 GM PACKET PO SCH (09:42)
[2020-01-22 12:55] VITALS: BP 145/77
== END 2020-01-22 16:20 | disposition home or self-care (01) | DRG 64 ==
LOC: ED 14:30 → EDIP 15:30 → 4WST 18:12 → 4EST 01-11 08:22 → 3N 01-18 01:49
PROVIDERS: ADMIT Hospitalist; ATTEND Internal Medicine
DX: I63.512 Cerebral infarction due to unspecified occlusion or stenosis of left middle cerebral artery (principal); J69.0 Pneumonitis due to inhalation of food and vomit; N17.0 Acute kidney failure with tubular necrosis; G81.91 Hemiplegia, unspecified affecting right dominant side; Z20.828 Contact with and (suspected) exposure to other viral communicable diseases; E11.9 Type 2 diabetes mellitus without complications; E87.6 Hypokalemia; I10 Essential (primary) hypertension; R13.10 Dysphagia, unspecified; R29.810 Facial weakness; R47.01 Aphasia; R74.8 Abnormal levels of other serum enzymes; R79.89 Other specified abnormal findings of blood chemistry; R29.710 NIHSS score 10; Z79.899 Other long term (current) drug therapy; Z79.891 Long term (current) use of opiate analgesic; Z79.01 Long term (current) use of anticoagulants
CPT/HCPCS: 36415; 70450; 70496; 70498; 70551; 71045; 71275; 80048; 80053; 80061; 81001; 82565; 82962; 83036; 83605; 83735; 84100; 84443; 85025; 85049; 85379; 85384; 85520; 85610; 85730; 87040; 93005; 93306; 99291; G0378; J0295; J1650; J2543; J3480; Q9967; 92523-GN; J0360; J1815; J7030; J7040; U0003